=== PATIENT | female | born 2005 | race Caucasian/White ===

== ENCOUNTER 2024-07-13 19:45 | Emergency (ER) | payer MEDICARE, SELFPAY ==
[2024-07-13 19:48] VITALS: BP 119/85
[2024-07-13 20:12] LABS: % Basophils 0.5 % (0-2); % Eosinophils 0.5 % (0-6); % Immature Granulocytes 0.1 % (0-0.5); % Lymphocytes 27.6 % (20.5-51.1); % Monocytes 6.4 % (1.7-9.3); % Neutrophils 64.9 % (42.2-75.2); Absolute Monocytes 0.5 10^3/uL (0.1-0.6); Absolute Neutrophils 4.7 10^3/uL (1.4-6.5); Hematocrit 38.7 % (37.0-47.0); Hemoglobin 13.3 g/dL (12.0-16.0); Mean Corp Hgb Conc. 34.4 g/dL (33.0-37.0); Mean Corpuscular Hgb 30.2 pg (27.0-31.0); Mean Platelet Volume 9.6 fL (7.4-10.4); Nucleated Red Blood Cells % 0 %; Platelet Count 240 10^3/uL (130-400); Red Cell Dist. Width 12.1 % (11.5-14.5); White Blood Cell Count 7.3 10^3/uL (4.8-10.8)
[2024-07-13 20:22] LABS: Blood Urea Nitrogen 14 mg/dl (7-17); Calcium 8.9 mg/dl (8.4-10.2); Carbon Dioxide 22 mmol/L (22-30); Chloride 104 mmol/L (98-107); Glucose 102 mg/dl (70-99); Potassium 3.6 mmol/L (3.5-5.1); Sodium 137 mmol/L (135-145); eGFR > 60.00
--- NOTE | 2024-07-13 21:05 | ED.GENMED ---
History of Present Illness
General
Chief Complaint: Problems
Source: patient
Exam Limitations: none
Time Seen by Provider: 07/13/24 20:43
Nursing documentation reviewed up to this point in time: agreed with
History of Present Illness
History of Present Illness:
Patient is a 18-year-old female who presents to the ER for evaluation. Patient reports she recently found out she was with 2 home test. Her last menstrual period June 09. She is scheduled to see her DISPLAY DEPARTMENT MANAGER in [facility]
July 21. She presents here for the past 3 to 4 days she has had lower abdominal pain in the suprapubic region. She denies any urinary frequency urgency or dysuria. She does feel some pain in her back. She denies any fever chills nausea
vomiting. She denies any vaginal bleeding.
This is patient's second ( 2 para 1) no prior miscarriages or abortions
Review of Systems
Review of Systems
Allergies reviewed?: Yes
All Other Systems: ROS reviewed and negative except as documented in HPI and ROS
Constitutional: Reports no symptoms; Denies fever, fatigue or chills
EENT: Reports no symptoms
Respiratory: Reports no symptoms
Cardiac: Reports no symptoms
ABD/GI: Reports abdominal pain; Denies nausea, vomiting or diarrhea
: Reports no symptoms; Denies flank pain, urgency or discharge
Musculoskeletal: Reports back pain (mild low back pain )
Skin: Reports no symptoms
Neurological: Reports no symptoms
Hematologic/Lymphatic: Reports no symptoms
Psychiatric: Reports no symptoms
Phy Exam
General Physical Exam
General Presentation: no apparent distress
General age: appears stated age
General Skin: warm and dry
General Habitus: normal
General Mental: alert
Course
Orders/Labs/Results
Orders:
Orders
07/13/24 19:58
Basic Metabolic Panel Urgent
Beta HCG Quantitative Urgent
Comment: ADD ON
Complete Blood Count/With Diff Urgent
07/13/24 20:32
Add On- LAB Urgent
Tests Added?: hcg quantitative
07/13/24 21:15
UA Reflex to Culture [Urinalysis Reflex To Culture] Urgent
Date Specimen was Collected: 07/13/24
Time Specimen was Collected: 21:13
07/13/24 21:19
US W Transvaginal Urgent
Reason For Exam: lower abd pain
Abnormal Lab Results
07/13/24 07/13/24
19:58 21:15
Glucose 102 H mg/dl
(70-99)
Urine Ketones 1+ A
(Negative)
07/13/24 19:58
07/13/24 19:58
Vital Signs
Initial and Last Documented VS:
Initial Vital Signs
Temp Pulse Resp BP Pulse Ox
97.7 F 96 18 119/85 100
07/13/24 19:48 07/13/24 19:48 07/13/24 19:48 07/13/24 19:48 07/13/24 19:48
Last Documented Vital Signs
Temp Pulse Resp BP Pulse Ox
97.7 F 87 18 127/83 100
07/13/24 19:48 07/13/24 23:30 07/13/24 19:48 07/13/24 23:30 07/13/24 23:30
Zinc Skimmer consulted with Physician
Zinc Skimmer consulted with physician?: Yes
Name of Physician Consulted: buck
Information
Weeks gestation: N/A
Location: N/A
MDM/Problems Addressed
Differential Diagnosis Includes:
Not limited to ectopic , cramping round ligament pain
MDM/Problems Addressed:
Patient is a 18-year-old female who presents for abdominal cramping. Patient reports she found out she was on her home test her last menstrual period was June 09. She does have an upcoming appoint scheduled at [place]'s
DISPLAY DEPARTMENT MANAGER however has had some lower pelvic discomfort for the past several days and no vaginal bleeding. On exam she is nontender no acute distress she denies any UTI symptoms and is negative for UTI on urinalysis. Her labs unremarkable. Her beta
is today 3163. US shows : Shows focus within the uterus which may represent gestational sac with age of 4 weeks 6 days however no definite pole or yolk sac visualized. Patient will need 48-hour repeat hCG/repeat ultrasound. I spoke to
patient and reviewed all testing discussed close outpatient follow-up with her DISPLAY DEPARTMENT MANAGER. She is instructed to call her DISPLAY DEPARTMENT MANAGER tomorrow to get repeat hCG and ultrasound scheduled if unable to do so then return to the ER.
*Critical Care Note
Total Time (30-74mins, 75-104mins- exclusive of procedures): Not Applicable
ED Attending Note
-
Portions of this chart may have been created with voice recognition software.� Occasional wrong word or��sound alike� substitutions may have occurred due to the inherent limitations of voice recognition software.
Discharge Plan
Departure
Patient Disposition: Home (Routine Discharge)
Date of Disposition: 07/13/24
Time of Disposition: 23:18
Patient with high blood pressure during this ER visit?: No
Covid-19: Not Applicable
Discharge Problem:
Referrals:
UNKNOWN - PT DOES,NOT KNOW [Family Provider] -
Activity Restrictions/Additional Instructions:
As discussed please call your DISPLAY DEPARTMENT MANAGER tomorrow!!!! you will need a 48-hour repeat BETA HCG and repeat US . Return here to the ER in 2 days if you are unable to get this testing done. Return if any worsening of symptoms including increased pain
bleeding.
Interventions
Interventions:
*Risk Screen - Suicide Last Done: 07/13/24 19:48
*General Assessment Last Done: 07/13/24 20:35
*Neglect/Abuse Screening Last Done: 07/13/24 19:48
*ED- Fall Risk Assessment Last Done: 07/13/24 20:35
*ED COVID-19 Vaccine History Last Done: 07/13/24 20:35
*Nursing Disposition Last Done: 07/13/24 23:30
ED-Female Genitourinary Assessment Last Done: 07/13/24 20:35
Discharge Date and Time
Discharge Date/Time: 07/13/24 23:32
Print Language: LEBANESE
[2024-07-13 21:15] VITALS: BMI 20.9
[2024-07-13 21:30] VITALS: BP 126/80
[2024-07-13 21:32] LABS: Urine Albumin Negative (Neg - Trace); Urine Bilirubin Negative (Negative); Urine Character Clear (Clear); Urine Color Yellow; Urine Glucose Negative (Negative); Urine Ketone 1+ (Negative); Urine Leukocyte Negative (Negative); Urine Nitrite Negative (Negative); Urine Occult Blood Negative (Negative); Urine Specific Gravity 1.025 (<1.030); Urine Urobilinogen Negative (Neg - 1+)
[2024-07-13 23:30] VITALS: BP 127/83
== END 2024-07-13 23:32 | disposition home or self-care (01) ==
LOC: EMR 19:45
PROVIDERS: Nurse Practitioner; Student in an Organized Health Care Education/Training Program; EMERGENCY PHYSICIAN Emergency Medicine
DX: O26.891 Other specified pregnancy related conditions, first trimester (principal); R10.30 Lower abdominal pain, unspecified; Z3A.01 Less than 8 weeks gestation of pregnancy
CPT/HCPCS: 99284; 76801; 76817; 80048; 81003; 84702; 85025

== ENCOUNTER 2024-07-15 15:36 | Emergency (ER) | payer MEDICARE, SELFPAY ==
[2024-07-15 15:42] VITALS: BP 120/72
--- NOTE | 2024-07-15 19:12 | ED.GENMED ---
History of Present Illness
General
Chief Complaint: Problems
Source: patient
Exam Limitations: none
Time Seen by Provider: 07/15/24 18:51
Nursing documentation reviewed up to this point in time: agreed with
History of Present Illness
History of Present Illness:
pt is a 18 y/o F
approx 5 weeks preg
here with pelvic pain
here 2 days ago with pelvic pain, hg then was 3100 and US showed gest sac but no pole or yolk sac
her urine was trace ketones
normal labs otherwise
no vaginal bleeding/discharge
she was told to F/U in 48 hours for beta
she was unable to get appt until 07/20 with her shuttle route vehicle operator so she came here
has intermittent pain in the lower abdomen lasting horus when present
moving bowels ok, doesn't feel like she is constipated
no dysuria, hematuria, fever, chills, vomiting, diarrhea, vaingal bleeding
she says the pain has been intermittent x 5 days
Past History
Past History
ED Past Medical History: None
ED Past Surgical History: None
Social History
Tobacco: Non-smoker
Alcohol: None
Drug: None
Personal:
Living: with family
Review of Systems
Review of Systems
Allergies reviewed?: Yes
All Other Systems: Not applicable
Phy Exam
Physical Exam
Physical Exam:
GENERAL: Alert , in no apparent distress
EYE: pupils equal and reactive
NECK: Supple
ENT: o/p clr, mmm.
CARDIAC: Regular rate and rhythm .
LUNGS: Clear breath sounds bilaterally, no acute respiratory distress, no wheezes/rales/rhonchi
ABDOMEN: Soft, without focal tenderness, no r/g, no cvat, normal bowel sounds
gu:
NEUROLOGICAL: Alert and oriented, no focal neuro deficits
SKIN: Warm and dry, skin intact.
MUSCULOSKELETAL: No edema, well perfused. neg ruthann's sign
PSYCH: Normal and appropriate interaction.
Course
Orders/Labs/Results
Orders:
Orders
07/15/24 15:53
HCG, Beta Quantitative [Beta HCG Quantitative] Urgent
Is this a screen?: No
Comment: known ; assessing for increasing levels
07/15/24 16:12
US Transvaginal Only Urgent
Reason For Exam: of unknown location, PAIN
Vital Signs
Initial and Last Documented VS:
Initial Vital Signs
Temp Pulse Resp BP Pulse Ox
37.1 C 77 18 120/72 99
07/15/24 15:42 07/15/24 15:42 07/15/24 15:42 07/15/24 15:42 07/15/24 15:42
Last Documented Vital Signs
Temp Pulse Resp BP Pulse Ox
37.1 C 77 18 120/72 99
07/15/24 15:42 07/15/24 15:42 07/15/24 15:42 07/15/24 15:42 07/15/24 15:42
Information
Weeks gestation: Weeks:
Location: Location:
MDM/Problems Addressed
Differential Diagnosis Includes:
uti, miscarriage
MDM/Problems Addressed:
18-year-old female G2, P1 approximately 5 weeks presents for follow-up from her ER visit 48 hours ago for lower abdominal pain and . She at that time had a beta of 3100 and an ultrasound which showed a gestational sac without a
yolk sac or pole. She was told to follow-up in 48 hours but was unable to get an appointment so she returned here. She has an appointment on 4�22. She has had no vaginal bleeding or dysuria but continues to have intermittent episodes of
pain that is lasting several hours. She is not constipated that she knows of. She not had any vaginal bleeding or vaginal discharge. On exam she is afebrile, not vomiting, well-appearing, comfortable, has mild suprapubic tenderness.
Her no tenderness over McBurney's point. She did have a CBC 2 days ago which was normal her UA was also reviewed and negative for infection at that time. Today's beta has now risen to 6900 and her ultrasound now shows a yolk sac, there is no
heartbeat yet but this is likely because of early . Given the rise in beta and improvement in her ultrasound I do not feel that the patient has further need for every 48 hours follow-up and can follow-up with her OB as planned. Regarding
the pelvic pain I offered a pelvic exam and a repeat urinalysis. Patient denies urinalysis but consented to the pelvic exam. She could have some constipation or gas pain.
i walked to find the speculum for the pelvic exam but pt had eloped when i returned
*Critical Care Note
Total Time (30-74mins, 75-104mins- exclusive of procedures): Not Applicable
ED Attending Note
-
Portions of this chart may have been created with voice recognition software.� Occasional wrong word or��sound alike� substitutions may have occurred due to the inherent limitations of voice recognition software.
Discharge Plan
Departure
Discharge Problem:
Pelvic pain during
Instructions: symptoms
Referrals:
NONE,* [Family Provider] -
Activity Restrictions/Additional Instructions:
were not sure the cause of your pelvic pain. You should stay hydrated
, take Metamucil once a day to make sure you do not get constipated.
Follow-up with your WREATH INSPECTOR as planned. Return for severe worsening pain, bleeding, urinary symptoms, vomiting, fever or any concern
Discharge Date and Time
Print Language: UKRAINIAN
== END 2024-07-15 19:30 | disposition left against medical advice (07) ==
LOC: EMR 15:36
PROVIDERS: EMERGENCY PHYSICIAN Student in an Organized Health Care Education/Training Program
DX: O26.891 Other specified pregnancy related conditions, first trimester (principal); R10.2 Pelvic and perineal pain; Z3A.01 Less than 8 weeks gestation of pregnancy; Z53.29 Procedure and treatment not carried out because of patient's decision for other reasons
CPT/HCPCS: 99284; 76817; 84702

== ENCOUNTER 2024-09-24 20:37 | Emergency (ER) | payer MEDICARE, SELFPAY ==
[2024-09-24 20:45] VITALS: BP 116/76
[2024-09-24 21:37] LABS: % Basophils 0.3 % (0-2); % Eosinophils 0.3 % (0-6); % Immature Granulocytes 0.3 % (0-0.5); % Lymphocytes 13.5 % (20.5-51.1); % Monocytes 6.1 % (1.7-9.3); % Neutrophils 79.5 % (42.2-75.2); Absolute Lymphocytes 1.5 10^3/uL (1.2-3.4); Absolute Monocytes 0.7 10^3/uL (0.1-0.6); Absolute Neutrophils 8.6 10^3/uL (1.4-6.5); Hematocrit 33.6 % (37.0-47.0); Hemoglobin 11.7 g/dL (12.0-16.0); Mean Corp Hgb Conc. 34.8 g/dL (33.0-37.0); Mean Corpuscular Hgb 30.5 pg (27.0-31.0); Mean Corpuscular Volume 87.7 fL (81.0-99.0); Mean Platelet Volume 9.6 fL (7.4-10.4); Nucleated Red Blood Cells % 0 %; Platelet Count 222 10^3/uL (130-400); Red Blood Cell Count 3.83 10^6/uL (4.20-5.40); White Blood Cell Count 10.8 10^3/uL (4.8-10.8)
[2024-09-24 21:49] LABS: ALT (SGPT) 18 U/L (0-35); AST (SGOT) 18 U/L (14-36); Albumin 4.2 g/dl (3.5-5.0); Alkaline Phosphatase 41 U/L (38-126); Blood Urea Nitrogen 6 mg/dl (7-17); Calcium 8.8 mg/dl (8.4-10.2); Carbon Dioxide 24 mmol/L (22-30); Chloride 105 mmol/L (98-107); Glucose 73 mg/dl (70-99); Potassium 3.7 mmol/L (3.5-5.1); Sodium 136 mmol/L (135-145); Total Bilirubin 0.5 mg/dl (0.2-1.3); Total Protein 6.8 g/dl (6.3-8.2); eGFR > 60.00
[2024-09-25 00:20] VITALS: BP 107/67
--- NOTE | 2024-09-25 00:54 | ED.GENMED ---
History of Present Illness
General
Chief Complaint: Problems
Source: patient
Exam Limitations: none
Time Seen by Provider: 09/24/24 23:53
Nursing documentation reviewed up to this point in time: agreed with
History of Present Illness
History of Present Illness:
Patient is a at an estimated 15 weeks gestation who presents to the emergency department for evaluation of vaginal spotting and lower abdominal cramping. Patient reports noticing light vaginal spotting yesterday which persisted throughout
today. She denies any significant bleeding or passing any clots. There is some associated mild lower abdominal cramping. She denies any lightheadedness, dizziness, or significant shortness of breath. She has had no fevers or chills. No history
of dysuria or hematuria.
Patient did contact her CLERICAL MANAGER who recommended evaluation in the emergency department given persistent spotting.
Patient is scheduled for a regular OB follow-up on Friday.
Patient has no history of prior miscarriages. This has thus far been uncomplicated.
Past History
Past History
ED Past Medical History: None
ED Past Surgical History: None
Social History
Tobacco: Non-smoker
Alcohol: None
Drug: None
Personal:
Living: with family
Review of Systems
Review of Systems
Allergies reviewed?: Yes
All Other Systems: ROS reviewed and negative except as documented in HPI and ROS
Phy Exam
Physical Exam
Physical Exam:
Vitals: Patient's vital signs are stable. Afebrile
General: Patient is well appearing, no acute distress
Skin: Warm and dry, no rashes or lesions
Head: Normocephalic, atraumatic
Eyes: Sclera nonicteric. EOMs intact. No nystagmus.
Throat: Protecting airway
Neck: Normal ROM, no cervical spine tenderness, no meningismus
Cardiac: Regular rate and rhythm, no murmurs.
Pulm: Normal respiratory effort, no wheezes, rales, rhonchi heard on exam
.
Abdomen: Abdomen soft and nontender. No focal tenderness.
Extremities: No evidence of cyanosis or edema. DP pulses palpable bilaterally.
Neuro: AAOx3. Grossly intact
Psychiatric: Normal affect.
Course
Orders/Labs/Results
Orders:
Orders
09/24/24 20:51
Type+Screen Urgent
CMP [Comprehensive Metabolic Panel] Urgent
Complete Blood Count/With Diff Urgent
09/24/24 20:52
Beta HCG Quantitative Urgent
Is this a screen?: No
09/24/24 20:53
US Limited Urgent
Reason For Exam: spotting and cramping
09/24/24 21:58
ABO2 Urgent
BBK Wristband Number:
Associate notified that ABO2 has been ordered: [id number]
Date: 09/24/24
Time: 21:58
[place] Marshal ID: [id number]
Abnormal Lab Results
09/24/24
20:51
RBC 3.83 L 10^6/uL
(4.20-5.40)
Hgb 11.7 L g/dL
(12.0-16.0)
Hct 33.6 L %
(37.0-47.0)
Absolute Neuts (auto) 8.6 H 10^3/uL
(1.4-6.5)
Absolute Monos (auto) 0.7 H 10^3/uL
(0.1-0.6)
Neutrophils % 79.5 H %
(42.2-75.2)
Lymphocytes % 13.5 L %
(20.5-51.1)
BUN 6 L mg/dl
(7-17)
Creatinine 0.4 L mg/dL
(0.6-1.0)
09/24/24 20:51
09/24/24 20:51
Vital Signs
Initial and Last Documented VS:
Initial Vital Signs
Temp Pulse Resp BP Pulse Ox
98.6 F 83 20 116/76 100
09/24/24 20:45 09/24/24 20:45 09/24/24 20:45 09/24/24 20:45 09/24/24 20:45
Last Documented Vital Signs
Temp Pulse Resp BP Pulse Ox
98.6 F 94 16 114/68 99
09/24/24 20:45 09/25/24 01:50 09/25/24 01:50 09/25/24 01:50 09/25/24 01:50
Information
Weeks gestation: Weeks: (15.2)
Location: Location: (Intrauterine)
MDM/Problems Addressed
Differential Diagnosis Includes:
Not limited to: Threatened , missed , subchorionic hemorrhage, placental previa, etc.
MDM/Problems Addressed:
19-year-old female, at an estimated 15 weeks gestation who presents to the emergency department with mild vaginal spotting and pelvic cramping since yesterday. No associated vomiting, lightheadedness, dizziness, or shortness of breath. No
fevers or urinary symptoms. Patient has stable vital signs on arrival and is afebrile. Physical exam as above.
Prior to my evaluation, basic labs were sent without clinically significant moralities. Mild anemia noted likely secondary to . An ultrasound was obtained as well, which shows a single intrauterine dating 15 weeks 2days with heart
rate of 152 BPM. No evidence of placenta previa. Internal os is closed.
Ultimately � patient is hemodynamically stable with very mild bleeding at this point. Ultrasound reassuring at this time, however Given bleeding in concern for possible threatened . Will await type in screen to determine if Rhogam
is needed. Otherwise feel patient stable for discharge home with close monitoring by her CLERICAL MANAGER � she already has an appointment scheduled for Friday
Update: Patient is blood type B +. Rhogam not indicated. She has remained hemodynamically stable and well appearing. Will discharge home with CLERICAL MANAGER follow up on Friday. Return precautions discussed.
Chronic conditions affecting care:
N/A
Acute Exacerbation and/or Progression of Chronic Illness:
N/A
*Radiology
Radiology exam reviewed: radiology read reviewed
*Pulse Oximetry
SaO2: 100
Oxygen Mode of Delivery: Room air
Patient hypoxic: no
*EKG
Interpreted by ED Provider?: NA
*Managing Member Interpretation
Rate: Managing Member- N/A
*Critical Care Note
Total Time (30-74mins, 75-104mins- exclusive of procedures): Not Applicable
ED Attending Note
-
Portions of this chart may have been created with voice recognition software.� Occasional wrong word or��sound alike� substitutions may have occurred due to the inherent limitations of voice recognition software.
Discharge Plan
Departure
Patient Disposition: Home (Routine Discharge)
Date of Disposition: 09/25/24
Time of Disposition: 01:34
Patient with high blood pressure during this ER visit?: No
Condition: Good
Covid-19: Not Applicable
Discharge Problem:
Threatened miscarriage, Vaginal bleeding during
Instructions: Threatened Miscarriage (DC)
Referrals:
UNKNOWN - PT DOES,NOT KNOW [Family Provider]
Activity Restrictions/Additional Instructions:
RETURN TO THE EMERGENCY DEPARTMENT WITH ANY PERSISTENT/HEAVY VAGINAL BLEEDING, PERSISTENT/WORSENING ABDOMINAL PAIN, LIGHTHEADEDNESS/DIZZINESS, SHORTNESS OF BREATH, WORSENING IN CURRENT SYMPTOMS, OR ANY OTHER CONCERNS
- As discussed�your lab work showed no acute abnormalities in the emergency department. Your ultrasound showed an intrauterine estimated about 15 weeks 2 days with a heart rate of 152 bpm.
- Please adhere to pelvic rest until you are cleared by your CLERICAL MANAGER.
- Stay well-hydrated.
- As discussed�it is very important you follow-up with your CLERICAL MANAGER on Friday as scheduled for further evaluation/management. You may require repeat imaging/lab work.
Monitor your symptoms very closely and return to the emergency department with any acute worsening/new symptoms or any other concerns
Interventions
Interventions:
*Risk Screen - Suicide Last Done: 09/24/24 20:45
*General Assessment Last Done: 09/24/24 20:45
*Neglect/Abuse Screening Last Done: 09/24/24 20:45
*ED- Fall Risk Assessment Last Done: 09/25/24 01:50
*ED COVID-19 Vaccine History Last Done: 09/25/24 01:50
*Nursing Disposition Last Done: 09/25/24 01:50
ED-Female Genitourinary Assessment Last Done: 09/25/24 00:15
Discharge Date and Time
Discharge Date/Time: 09/25/24 01:50
Print Language: TELUGU
[2024-09-25 01:50] VITALS: BP 114/68
== END 2024-09-25 01:50 | disposition home or self-care (01) ==
LOC: EMR 20:37
PROVIDERS: Student in an Organized Health Care Education/Training Program; EMERGENCY PHYSICIAN Emergency Medicine
DX: O20.0 Threatened abortion (principal); O99.012 Anemia complicating pregnancy, second trimester; Z3A.15 15 weeks gestation of pregnancy
CPT/HCPCS: 99284; 76815; 80053; 84702; 85025; 86850; 86900; 86901